=== PATIENT | male | born 1960 | race Caucasian/White ===

== ENCOUNTER 2024-10-15 10:43 | Outpatient (CLI) | payer OTHER, SELFPAY | END 2024-10-15 10:44 | disposition home or self-care (01) | LOC: RAD 10:46 | PROVIDERS: PCP Physician Assistant; Visit Provider Family Medicine | DX: M51.26 Other intervertebral disc displacement, lumbar region (principal); M54.16 Radiculopathy, lumbar region; M47.816 Spondylosis without myelopathy or radiculopathy, lumbar region | CPT/HCPCS: 62323; J0702; Q9966 ==

== ENCOUNTER 2024-12-10 10:06 | Outpatient (CLI) | payer OTHER, SELFPAY | END 2024-12-10 10:07 | disposition home or self-care (01) | LOC: INJ CL 10:07 | PROVIDERS: PCP Physician Assistant; Visit Provider Family Medicine | DX: M54.16 Radiculopathy, lumbar region (principal) | CPT/HCPCS: 64483; J1100; Q9966 ==